=== PATIENT | male | born 1965 | race Two or more races ===

== ENCOUNTER 2020-04-23 12:55 | Emergency (ER) | payer OTHER ==
[~2020-04-23] VITALS: Ht 170.2 cm; Wt 113.4 kg
[2020-04-23] MEDS ORDERED: CYMBALTA20 MG (13:00)
[2020-04-23] MEDS ORDERED: HYZAAR 100-12.1 EACH (13:00)
[2020-04-23] MEDS ORDERED: GLIPIZIDE XL10 MG (13:03)
[2020-04-23] MEDS ORDERED: INTESTINEX680 M1 PO (16:50)
[2020-04-23] MEDS ORDERED: LEVSIN/SL0.125 MG SL (16:50)
[2020-04-23] MEDS ORDERED: PEPCID AC20 MG PO (16:50)
== END 2020-04-23 17:34 | disposition home or self-care (01) ==
LOC: ER 12:55
DX: K29.70 Gastritis, unspecified, without bleeding (principal)